=== PATIENT | male | born 1980 | race Caucasian/White ===

== ENCOUNTER 2016-10-10 11:18 | Emergency (ER) | payer OTHER ==
[~2016-10-10] VITALS: Ht 175.3 cm; Wt 125.0 kg
[2016-10-10 11:20] VITALS: BP 142/93; PULSE 85; RESP 16; O2SAT 100
--- NOTE | 2016-10-10 11:28 | ED.REPORT ---
HPI-Abd Pain M Under 40 Date of Service October 10, 2016 ED Provider: Dr. Alec Sanchez M.D. A 35 year old male with a history of asthma presents to the ED with diffuse abdominal pain onset last night, while flying home from [place]. Associated symptoms include nausea, constipation, and bloating described as excessive "gas moving around." Yesterday the patient was recreationally haley jumping (40ft) into water when he hit an eight foot deep rock with his left hip. He was seen in the ED just after the fall and received normal x-rays. His abdomen did not hurt at that time. The patient did not hit his head or lose consciousness in the fall. He also denies vomiting, diarrhea, fever, or other symptoms. Nursing Notes Stated Complaint: ABDOMINAL PAIN Chief Complaint: Male Abdominal Pain Nursing Notes Reviewed: Yes Allergies: Coded Allergies: Iodinated Contrast Media - Oral and (Verified Allergy, Severe, Anaphylaxis , 03/17/15) General Time Seen by MD: 11:27 Chief Complaint Abdominal pain Hx Obtained From: Patient Arrived By: Walk-in Sudden in Onset?: No Onset Occurred: Yesterday (Last night ) Symptom Duration: Since onset Location: : Diffuse Quality: Painful Severity: Current: Moderate Severity: Maximum: Moderate Pertinent Negative: Relieved by nothing Recent Healthcare: Recent doctor visit, Recent testing Past Medical History Past Medical History Asthma Past Surgical History Oral surgery Knee surgery Hernia surgery Urachal cyst removal Family History None Smoking History Never Smoker Social History Alcohol Use: 1-3 per week Drug Use: Denies drug use Ambulatory Status Independent Review of Systems Review of Systems Note: + Bloating described as excessive "gas moving around" Constitutional: Denies: Fever Respiratory: Denies: Non-productive cough, Shortness of breath GI: Reports: Abdominal pain, Constipation, Nausea, Denies: Diarrhea, Vomiting Complete sys rev & neg: except as marked. Neurologic: Denies: Change LOC Physical Exam Initial Vital Signs Vital Signs (First) Date Time Temp Pulse Resp B/P Pulse Ox O2 Delivery O2 Flow Rate FiO2 10/10/16 11:20 36.5 85 16 142/93 100 Room Air Initial VS: Reviewed Head / Eyes: Atraumatic, Normocephalic ENT: Conjunctiva normal, No scleral icterus Neck: Supple, Full range of motion Skin: Warm, Dry, No cyanosis Neurologic: Alert, Oriented, Nonfocal Psychiatric: Mood/affect normal, Behavior normal, Normal thought content General/Constitutional: Awake, Alert Respiratory / Chest: Breath sounds NL, Breath sounds = bilat, No respiratory distress Cardiovascular: Heart rate NL, Regular rhythm, Heart sounds NL Abdomen: Soft, No guarding, No palpable mass Tenderness/Guarding/Rebound: Positive: Tender diffuse Lower Extremity / Pelvis / MS: Full range of motion Left Hip: Positive: Ecchymosis present (5cm x 5cm just posterior to greater trochanter) Trace edema bilaterally Interpretation & Diagnostics Lab Results Interpretation Result Diagram: 10/10/16 1135 10/10/16 1135 Test 10/10/16 11:35 White Blood Count 8.9th/mm3 (3.8-10.1) Red Blood Count 5.24mil/mm3 (4.40-5.80) Hemoglobin 14.9g/dL (13.8-17.2) Hematocrit 43.8% (41.0-50.0) Mean Corpuscular Volume 83.6fL (81-100) Mean Corpuscular Hemoglobin 28.4pg (27.0-35.0) Mean Corpuscular Hemoglobin Concent 34.0% (32.0-37.0) Red Cell Distribution Width 13.2% (12.3-15.4) Platelet Count 205bil/L (150-400) Neutrophils (%) (Auto) 66.2% (40-74) Lymphocytes (%) (Auto) 25.8% (14-46) Monocytes (%) (Auto) 5.8% (4-12) Eosinophils (%) (Auto) 1.7% (0-5) Basophils (%) (Auto) 0.4% (0-3) Sodium Level 141mEq/L (134-144) Potassium Level 3.9mEq/L (3.5-5.2) Chloride Level 102mEq/L (97-108) Carbon Dioxide Level 24mmol/L (18-29) Blood Urea Nitrogen 22mg/dL (6-20) Creatinine 1.00mg/dL (0.76-1.27) Estimat Glomerular Filtration Rate 91mL/min (>59) Glucose Level 114mg/dL (60-99) Calcium Level 9.5mg/dL (8.5-10.1) Magnesium Level 2.1mg/dL (1.6-2.6) Total Bilirubin 0.4mg/dL (0.0-1.2) Aspartate Amino Transf (AST/SGOT) 40U/L (0-50) Alanine Aminotransferase (ALT/SGPT) 37U/L (0-44) Alkaline Phosphatase 49U/L (25-150) Total Protein 7.5g/dL (6.4-8.4) Albumin 4.4g/dL (3.4-5.0) Lipase 34U/L (13-60) CT Abd / Pelvis Interpretation IMPRESSION: 1. No acute injury of the chest, abdomen, or pelvis is evident involving the bony or soft tissue structures. 2. No free fluid, loculated fluid collection, pneumoperitoneum, pneumothorax, or pleural effusion is evident. 3. Mild subcutaneous edema along the posterolateral aspect of the left proximal thigh/gluteal region suggestive of soft tissue injury. No definite hematoma is evident. The underlying bone is within normal limits. Dictated by: Alfredo Nettles M.D. on 10/10/2016 at 12:03 Study type: Abdom CT oral contrast Interpretation / Wet Read by: Interpret - Radiologist Re-Eval/Medical Decision Source of Hx: Old records Re-Evaluation/Progress #1: Time of Eval: 13:27 Patient Status: Condition improved Re-Evaluation/Progress Note: Patient rechecked. He is feeling better. Re-Evaluation/Progress #2: Time of Eval: 14:08 Patient Status: Condition improved Re-Evaluation/Progress Note: Discussed with patient lab and CT results, diagnosis, and plan for discharge. Follow-up and return to the ER instructions given. Patient agrees with plan for care and all questions were addressed. Counseled Regarding: Diagnosis, Lab results, Need for follow-up, When/why to return to ED Patient Discharge & Departure Primary Impression: Abdominal pain Abdominal location: generalized Qualified Code: R10.84 - Generalized abdominal pain Disposition: Home Discharge Condition All VS Reviewed: Yes Condition: Improved Patient Instructions: Acute Abdominal Pain (ED) Additional Instructions: Thank you for entrusting us with your care. Your exam today was reassuring for any serious illness. Continue taking your prescribed pain medication. Do not take more than 4g Tylenol in one day. Call your primary care provider today for a follow-up appointment. Return to the ER with any new or worsening symptoms including vomiting, fever, or fainting. Referrals: Jami Al MD (PCP) Scribe Attestation Portions of this note were transcribed by Nilda Marc. I, Dr. Sanchez, personally performed the history, physical exam, and medical decision-making; I reviewed and confirmed the accuracy of the information in the transcribed note. Signed by: Nelly Woo, 10/10/2016, 14:45 copies to: Jami Al MD, Kirk H MD October 10, 2016 11:28 NILDA MARC October 10, 2016 11:33
[2016-10-10] MEDS ORDERED: HYDROmorphone 1 mg/mL Inj IVPUSH ONE (12:00)
[2016-10-10] MEDS ORDERED: Ondansetron 2 mg/mL 2 mL Inj ONE (12:01)
[2016-10-10 12:07] LABS: BASOPHILS % (AUTO) 0.4 % (0-3); EOSINOPHILS % (AUTO) 1.7 % (0-5); MONOCYTES % (AUTO) 5.8 % (4-12); Mean Corpuscular Hemoglobin 28.4 pg (27.0-35.0); Mean Corpuscular Volume 83.6 fL (81-100); NEUTROPHILS % (AUTO) 66.2 % (40-74); Platelet Count 205 bil/L (150-400)
[2016-10-10 12:18] LABS: Magnesium 2.1 mg/dL (1.6-2.6)
--- NOTE | 2016-10-10 13:13 | DRSVH ---
PROCEDURE: CT CHEST, ABDOMEN AND PELVIS WITHOUT CONTRAST ([id number]) INDICATIONS: trauma TECHNIQUE: After the administration of oral contrast, 5 mm thick sections acquired from the lung apices to the s ymphysis pubis. 5 mm thick coronal and sagittal reformats acquired, with additional 7 mm coronal MIP reformats through the lungs. For radiation dose reduction, the following was used: automated expos ure control, adjustment of mA and/or kV according to patient size. COMPARISON: [facility], CT, CT KUB, 12/16/2015, 16:58. FINDINGS: Image quality: Excellent. CHEST: Lungs and pleura: No acute pulmonary opacities. No pleural effusions or pneumothorax. Central and peripheral airways are patent are normal in caliber. No lung masses or definite pulmonary nodules ar e present. Areas of minimal scarring versus atelectasis are present. Mediastinum: Heart size is normal. No pericardial effusion. No mediastinal adenopathy by CT size c riteria. Thoracic aorta and central pulmonary arteries are normal in size. Esophagus is normal in c aliber. No hiatal hernia. Soft tissue attenuation within the anterior mediastinum is felt to be rel ated to residual thymus tissue. Chest wall and bones: No axillary or supraclavicular adenopathy by size criteria. No acute fractures of the chest are identified. Mild degenerative changes involving multiple costovertebral junctions are identified. No suspicious osseous lesions or compression fractures are evident. Thyroid gland i s not enlarged. ABDOMEN: Solid organs: The liver, spleen, adrenals, pancreas, and kidneys appear to be within normal limits. Please note that evaluation of the solid organs for contusion or laceration is limited without contr ast. However, no subcapsular fluid collections or adjacent fluid collections are evident. Peritoneum and bowel: The stomach, duodenum, and remainder of the small bowel loops are nondilated. A large amount of residual stool is identified within the colon with a large amount of air seen withi n the transverse colon. The appendix is well-visualized and normal in size. No mesenteric inflammat ion is evident. There is no free fluid, loculated fluid collection, or free air within the abdomen. Nodes and vessels: No retroperitoneal or mesenteric adenopathy by size criteria. Aorta and inferior vena cava are normal in size. Bones: No acute fracture or dislocation is evident involving the lumbar spine. No suspicious osseous lesions or significant degenerative changes are identified. PELVIS: Genitourinary: Bladder wall thickness is normal. The prostate is not enlarged. Miscellaneous: No inguinal hernias or adenopathy. No free fluid, loculated fluid collection or free air is evident within the pelvis. Mild subcutaneous edema is evident along the posterolateral aspec t of the proximal left thigh/gluteal region without associated loculated fluid collection. Bones: No suspicious bony lesions. No acute pelvic fractures are evident. No significant degenerat tang changes of the pelvis are identified. IMPRESSION: 1. No acute injury of the chest, abdomen, or pelvis is evident involving the bony or soft tissue str uctures. 2. No free fluid, loculated fluid collection, pneumoperitoneum, pneumothorax, or pleural effusion is evident. 3. Mild subcutaneous edema along the posterolateral aspect of the left proximal thigh/gluteal region suggestive of soft tissue injury. No definite hematoma is evident. The underlying bone is within n ormal limits. Dictated by: Alfredo Nettles M.D. on 10/10/2016 at 12:03 Approved by: Alfredo Nettles M.D. on 10/10/2016 at 12:12
[2016-10-10 14:20] VITALS: BP 144/89; PULSE 85; RESP 16; O2SAT 100
== END 2016-10-10 14:20 | disposition home or self-care (01) ==
LOC: SED 11:18
DX: R10.84 Generalized abdominal pain (principal); W22.09XA Striking against other stationary object, initial encounter; Y93.39 Activity, other involving climbing, rappelling and jumping off; Y92.89 Other specified places as the place of occurrence of the external cause; Y99.8 Other external cause status; J45.909 Unspecified asthma, uncomplicated
CPT/HCPCS: 36415; 71250; 74176; 80053; 83690; 83735; 85025; 96374; 96375; 99285; J1170; J1885; J2405